=== PATIENT | female | born 1935 | race Caucasian/White ===

== ENCOUNTER → 2024-05-27 09:57 | Outpatient (REF) | payer OTHER, SELFPAY ==
[2024-05-27 10:48] LABS: % Basophils 0.3 % (0-2); % Immature Granulocytes 0.3 % (0-0.5); % Lymphocytes 20.5 % (20.5-51.1); % Monocytes 9.7 % (1.7-9.3); % Neutrophils 68.2 % (42.2-75.2); Absolute Eosinophils 0.1 10^3/uL (0-0.7); Absolute Lymphocytes 1.4 10^3/uL (1.2-3.4); Absolute Monocytes 0.7 10^3/uL (0.1-0.6); Absolute Neutrophils 4.7 10^3/uL (1.4-6.5); Hematocrit 31.5 % (37.0-47.0); Hemoglobin 11.3 g/dL (12.0-16.0); Mean Corp Hgb Conc. 35.9 g/dL (33.0-37.0); Mean Corpuscular Hgb 36.1 pg (27.0-31.0); Mean Corpuscular Volume 100.6 fL (81.0-99.0); Mean Platelet Volume 9.8 fL (7.4-10.4); Nucleated Red Blood Cells % 0 %; Platelet Count 217 10^3/uL (130-400); Red Blood Cell Count 3.13 10^6/uL (4.20-5.40); Red Cell Dist. Width 13.7 % (11.5-14.5); White Blood Cell Count 6.9 10^3/uL (4.8-10.8)
[2024-05-27 11:15] LABS: ALT (SGPT) 82 U/L (0-35); AST (SGOT) 115 U/L (14-36); Albumin 3.3 g/dl (3.5-5.0); Alkaline Phosphatase 121 U/L (38-126); Blood Urea Nitrogen 16 mg/dl (7-17); Calcium 8.8 mg/dl (8.4-10.2); Carbon Dioxide 23 mmol/L (22-30); Chloride 101 mmol/L (98-107); Glucose 96 mg/dl (70-99); Potassium 4.3 mmol/L (3.5-5.1); Sodium 133 mmol/L (135-145); Total Bilirubin 0.9 mg/dl (0.2-1.3); eGFR 54.19
== END ==
LOC: OLABWPC 09:57
PROVIDERS: ATTENDING PHYSICIAN Family Medicine
DX: I50.20 Unspecified systolic (congestive) heart failure (principal); I10 Essential (primary) hypertension
CPT/HCPCS: 36415; 80053; 85025

== ENCOUNTER → 2024-05-27 21:00 | Outpatient (REF) | payer OTHER, SELFPAY ==
[2024-05-28 12:39] LABS: Urine Albumin 1+ (Neg - Trace); Urine Bilirubin Negative (Negative); Urine Character Clear (Clear); Urine Color Yellow; Urine Glucose Negative (Negative); Urine Ketone Negative (Negative); Urine Leukocyte 1+ (Negative); Urine Nitrite Positive (Negative); Urine Occult Blood Negative (Negative); Urine Specific Gravity 1.005 (<1.030); Urine Urobilinogen Negative (Neg - 1+)
[2024-05-28 13:46] LABS: Urine Bacteria Many (Negative); Urine White Cell 21-25 /HPF (0-5)
[2024-05-28 13:47] LABS: Urine Red Blood Cell 0-2 /HPF (0-2)
== END ==
LOC: OLABWPC 21:00
PROVIDERS: ATTENDING PHYSICIAN Family Medicine
DX: N39.0 Urinary tract infection, site not specified (principal)
CPT/HCPCS: 81003; 81015; 87077; 87086

== ENCOUNTER 2024-08-11 13:51 | Emergency (ER) | payer OTHER, SELFPAY ==
[2024-08-11 13:55] VITALS: BP 95/75
[2024-08-11 14:12] LABS: % Basophils 0.7 % (0-2); % Immature Granulocytes 0.7 % (0-0.5); % Lymphocytes 12.7 % (20.5-51.1); % Monocytes 10.1 % (1.7-9.3); % Neutrophils 74.8 % (42.2-75.2); Absolute Basophils 0.1 10^3/uL (0-0.2); Absolute Eosinophils 0.1 10^3/uL (0-0.7); Absolute Immature Granulocytes 0.1 10^3/uL (0-0.05); Absolute Lymphocytes 1.1 10^3/uL (1.2-3.4); Absolute Monocytes 0.9 10^3/uL (0.1-0.6); Absolute Neutrophils 6.4 10^3/uL (1.4-6.5); Hematocrit 37.1 % (37.0-47.0); Hemoglobin 13.1 g/dL (12.0-16.0); Mean Corp Hgb Conc. 35.3 g/dL (33.0-37.0); Mean Corpuscular Hgb 34.9 pg (27.0-31.0); Mean Corpuscular Volume 98.9 fL (81.0-99.0); Mean Platelet Volume 9.4 fL (7.4-10.4); Nucleated Red Blood Cells % 0 %; Platelet Count 284 10^3/uL (130-400); Red Blood Cell Count 3.75 10^6/uL (4.20-5.40); Red Cell Dist. Width 14.2 % (11.5-14.5); White Blood Cell Count 8.6 10^3/uL (4.8-10.8)
[2024-08-11 14:27] LABS: ALT (SGPT) 146 U/L (0-35); AST (SGOT) 196 U/L (14-36); Albumin 3.6 g/dl (3.5-5.0); Alkaline Phosphatase 223 U/L (38-126); Blood Urea Nitrogen 15 mg/dl (7-17); Carbon Dioxide 24 mmol/L (22-30); Chloride 104 mmol/L (98-107); Glucose 176 mg/dl (70-99); Lipase 165 U/L (23-300); Potassium 4.3 mmol/L (3.5-5.1); Sodium 138 mmol/L (135-145); Total Protein 6.8 g/dl (6.3-8.2); eGFR 48.03
--- NOTE | 2024-08-11 16:12 | ED.GENMED ---
History of Present Illness
General
Chief Complaint: Abdominal Symptoms
Source: patient
Exam Limitations: none
Time Seen by Provider: 08/11/24 16:05
Nursing documentation reviewed up to this point in time: agreed with
History of Present Illness
History of Present Illness:
89 yr. old female presents to the ER for evaluation. She reports over the past several days she has noticed increased stool in her colostomy bag. She was on Senokot had stopped taking it for a while and then restarted it 2 days ago however this
has not improved the stool output. She denies any pain denies any nausea or vomiting. She was concerned about this because around 9 years ago she was hospitalized at [facility] and required surgery for bowel blockage. She did empty some stool
prior to coming to the hospital.
She denies any fever chills. Denies any urinary frequency urgency or dysuria.
Past History
Past History
ED Past Surgical History: Gynecological (Total hysterectomy)
Social History
Personal:
Living: [facility]
Employment: Retired
Review of Systems
Review of Systems
Allergies reviewed?: Yes
Other source history: family
All Other Systems: ROS reviewed and negative except as documented in HPI and ROS
Constitutional: Reports no symptoms; Denies fever, fatigue or chills
Respiratory: Reports no symptoms
Cardiac: Reports no symptoms
ABD/GI: Reports other (dec stool in colostomy bag ); Denies abdominal pain or vomiting
: Denies dysuria, flank pain, incontinence, urgency or discharge
Musculoskeletal: Reports no symptoms
Skin: Reports no symptoms
Neurological: Reports no symptoms
Psychiatric: Reports no symptoms
Phy Exam
General Physical Exam
General Presentation: no apparent distress
General age: appears stated age
General Skin: warm and dry
General Habitus: normal
General Mental: alert
General Hydration: appears well hydrated
Gastrointestinal Exam
Gastrointestinal Exam: normal bowel sounds, non tender, soft and other (on stool in colostomy bag)
Neurological Exam
Neurological Exam: alert and oriented x3
Musculoskeletal Exam
Musculoskeletal Exam: full ROM
Skin Exam
Skin Exam: normal color and warm/dry
Psychiatric Exam
Psychiatric Exam: normal mood/affect
Course
Orders/Labs/Results
Orders:
Orders
08/11/24 14:05
Complete Blood Count/With Diff Urgent
Comprehensive Metabolic Panel Urgent
Lipase Urgent
08/11/24 16:23
Urinalysis Reflex To Culture Urgent
Iohexol [Omnipaque] See Protocol PO NOW STA
08/11/24 16:25
CT Abd/pel W Iv And Oral Contr Urgent
Comment:
Reason For Exam: decreased outpt from colostomy
08/11/24 16:26
0.9% Sodium Chloride 1000 ml [Nss] 1,000 ml IV BOLUS
08/11/24 19:36
Acetaminophen [Tylenol] 650 mg .ROUTE .STK-MED ONE
08/11/24 19:37
Acetaminophen [Tylenol] 650 mg PO NOW STA
Abnormal Lab Results
08/11/24
14:05
RBC 3.75 L 10^6/uL
(4.20-5.40)
MCH 34.9 H pg
(27.0-31.0)
Abs Immat Gran (auto) 0.1 H 10^3/uL
(0-0.05)
Absolute Lymphs (auto) 1.1 L 10^3/uL
(1.2-3.4)
Absolute Monos (auto) 0.9 H 10^3/uL
(0.1-0.6)
Immature Gran % 0.7 H %
(0-0.5)
Lymphocytes % 12.7 L %
(20.5-51.1)
Monocytes % 10.1 H %
(1.7-9.3)
Creatinine 1.1 H mg/dL
(0.6-1.0)
Glucose 176 H mg/dl
(70-99)
AST 196 H U/L
(14-36)
ALT 146 H U/L
(0-35)
Alkaline Phosphatase 223 H U/L
(38-126)
08/11/24 14:05
08/11/24 14:05
Vital Signs
Initial and Last Documented VS:
Initial Vital Signs
Temp Pulse Resp BP Pulse Ox
98.1 F 71 16 95/75 93
08/11/24 13:55 08/11/24 13:55 08/11/24 13:55 08/11/24 13:55 08/11/24 13:55
Last Documented Vital Signs
Temp Pulse Resp BP Pulse Ox
98.1 F 65 16 95/75 94
08/11/24 13:55 08/11/24 19:30 08/11/24 19:30 08/11/24 13:55 08/11/24 19:30
MDM/Problems Addressed
Differential Diagnosis Includes:
Not limited by obstruction, constipation
MDM/Problems Addressed:
no evidence of obstruction on CAT scan. Oral contrast is seen extending into the lower quadrant colostomy there is moderate volume colonic stool. Will have patient continue her Senokot. She is in no acute distress and well-appearing abdomen soft
and nontender. Patient drained her colostomy bag prior to arrival. She denies any fever chills and is afebrile here with a stable hemoglobin normal platelets. Creatinine 1.1. Patient with elevated LFTs with normal bilirubin. In prior labs
patient did have elevated LFTs May/2024. I did review this with patient she was unaware of this. Patient no acute distress stable for discharge home with outpatient follow-up with family doctor for further evaluation of the LFTs along with GI
*Radiology
Radiology exam reviewed: radiology read reviewed
*Critical Care Note
Total Time (30-74mins, 75-104mins- exclusive of procedures): Not Applicable
ED Attending Note
-
Portions of this chart may have been created with voice recognition software.� Occasional wrong word or��sound alike� substitutions may have occurred due to the inherent limitations of voice recognition software.
Discharge Plan
Departure
Patient Disposition: Home (Routine Discharge)
Date of Disposition: 08/11/24
Time of Disposition: 19:42
Patient with high blood pressure during this ER visit?: No
Condition: Fair
Covid-19: Not Applicable
Discharge Problem:
Constipation
Instructions: Constipation, Adult (DC)
Prescriptions:
No Action
sennosides [Senokot] 8.6 mg Tablet
8.6 mg PO BID
acetaminophen [Tylenol] 325 mg Tablet
650 mg PO Q6H PRN (Reason: general discomfort)
amiodarone 200 mg Tablet
200 mg PO DAILY
alendronate 70 mg Tablet
70 mg PO Q28D
Theragran Tablet
1 tab PO DAILY
melatonin 3 mg Tablet
3 mg PO HS
meclizine 25 mg Tablet
25 mg PO Q8HPRN PRN (Reason: hypotension)
amlodipine 10 mg Tablet
10 mg PO DAILY
levothyroxine 125 mcg Tablet
125 mcg PO DAILY
calcium carbonate [Tums 500] 500 mg calcium (1,250 mg) Tablet,Chewable
500 mg PO BID
furosemide 20 mg Tablet
20 mg PO DAILY
Lubricant Eye([id number]) Dropperette
1 drp BOTH EYES TID
metoprolol tartrate 25 mg Tablet
25 mg PO BID
cholecalciferol (vitamin D3) 25 mcg (1,000 unit) Tablet
25 mcg PO DAILY
Eliquis 5 mg Tablet
5 mg PO BID
potassium chloride 20 mEq Tablet Extended Release
20 meq PO DAILY
vibegron 75 mg Tablet
75 mg PO DAILY
Referrals:
Velma Galeas CRNP [Family Provider] -
Naheed Begum DO [Active] -
Activity Restrictions/Additional Instructions:
As discussed your CAT scan was negative for bowel structure and continue your Senokot. In addition as discussed please follow-up with your family doctor and GI for reevaluation of your elevated liver function tests.
Return if any worsening of symptoms.
Interventions
Interventions:
*Risk Screen - Suicide Last Done: 08/11/24 13:55
*General Assessment Last Done: 08/11/24 17:36
*Neglect/Abuse Screening Last Done: 08/11/24 13:58
*ED- Fall Risk Assessment Last Done: 08/11/24 17:36
*ED COVID-19 Vaccine History Last Done: 08/11/24 17:36
[id number] Assessment Last Done: 08/11/24 17:13
Discharge Date and Time
Print Language: [place]IZ[place]
[2024-08-11] MEDS: OMNIPAQUE 50 ML PO (16:36)
[2024-08-11] MEDS: NSS 1000 IV (17:04)
[2024-08-11 19:33] VITALS: BP 153/129
[2024-08-11 19:34] VITALS: BP 130/63
[2024-08-11] MEDS: TYLENOL 650 MG PO (19:37)
[2024-08-11 20:00] VITALS: BP 133/101
== END 2024-08-11 23:01 | disposition home or self-care (01) ==
LOC: EMR 13:51
PROVIDERS: Emergency Medicine; EMERGENCY PHYSICIAN Emergency Medicine; FAMILY PHYSICIAN Registered Nurse
DX: K59.00 Constipation, unspecified (principal); Z90.710 Acquired absence of both cervix and uterus; Z93.3 Colostomy status
CPT/HCPCS: 99284; 74177; 80053; 83690; 85025; Q9967

== ENCOUNTER → 2024-08-15 10:53 | Outpatient (REF) | payer OTHER, SELFPAY ==
[2024-08-15 11:33] LABS: % Basophils 0.9 % (0-2); % Eosinophils 1.9 % (0-6); % Immature Granulocytes 0.5 % (0-0.5); % Lymphocytes 19.1 % (20.5-51.1); % Monocytes 10.7 % (1.7-9.3); % Neutrophils 66.9 % (42.2-75.2); Absolute Basophils 0.1 10^3/uL (0-0.2); Absolute Eosinophils 0.1 10^3/uL (0-0.7); Absolute Lymphocytes 1.2 10^3/uL (1.2-3.4); Absolute Monocytes 0.7 10^3/uL (0.1-0.6); Absolute Neutrophils 4.3 10^3/uL (1.4-6.5); Hemoglobin 11.1 g/dL (12.0-16.0); Mean Corp Hgb Conc. 33.6 g/dL (33.0-37.0); Mean Corpuscular Hgb 33.7 pg (27.0-31.0); Mean Corpuscular Volume 100.3 fL (81.0-99.0); Mean Platelet Volume 9.7 fL (7.4-10.4); Nucleated Red Blood Cells % 0 %; Platelet Count 245 10^3/uL (130-400); Red Blood Cell Count 3.29 10^6/uL (4.20-5.40); Red Cell Dist. Width 14.3 % (11.5-14.5); White Blood Cell Count 6.4 10^3/uL (4.8-10.8)
[2024-08-15 11:58] LABS: ALT (SGPT) 105 U/L (0-35); AST (SGOT) 95 U/L (14-36); Albumin 3.1 g/dl (3.5-5.0); Alkaline Phosphatase 189 U/L (38-126); Blood Urea Nitrogen 15 mg/dl (7-17); Calcium 8.6 mg/dl (8.4-10.2); Carbon Dioxide 24 mmol/L (22-30); Chloride 105 mmol/L (98-107); Glucose 74 mg/dl (70-99); Magnesium 2.1 mg/dl (1.6-2.3); Potassium 4.6 mmol/L (3.5-5.1); Sodium 138 mmol/L (135-145); Total Bilirubin 0.5 mg/dl (0.2-1.3); Total Protein 5.8 g/dl (6.3-8.2); eGFR 48.03
[2024-08-15 12:14] LABS: Free T4 1.67 ng/dl (0.78-2.19); Vitamin D, 25-OH*** 82.4 ng/mL (30-80)
== END ==
LOC: OLABWPC 10:53
PROVIDERS: ATTENDING PHYSICIAN Family Medicine
DX: I48.91 Unspecified atrial fibrillation (principal); I10 Essential (primary) hypertension; I50.20 Unspecified systolic (congestive) heart failure
CPT/HCPCS: 36415; 80053; 82306; 83735; 84439; 84443; 85025

== ENCOUNTER → 2024-09-27 11:04 | Outpatient (REF) | payer OTHER, SELFPAY ==
[2024-09-27 12:46] LABS: Free T4 2.17 ng/dl (0.78-2.19)
== END ==
LOC: OLABWHC 11:04
PROVIDERS: ATTENDING PHYSICIAN Family Medicine
DX: E03.9 Hypothyroidism, unspecified (principal)
CPT/HCPCS: 36415; 84439; 84443

== ENCOUNTER → 2024-11-11 09:55 | Outpatient (REF) | payer OTHER, SELFPAY ==
[2024-11-11 13:02] LABS: TSH 9.22 uIU/ml (0.47-4.68)
== END ==
LOC: OLABWIL 09:55
PROVIDERS: ATTENDING PHYSICIAN Family Medicine
DX: E03.9 Hypothyroidism, unspecified (principal)
CPT/HCPCS: 36415; 84439; 84443